=== PATIENT | female | born 1990 | race African-American/Black ===

== ENCOUNTER 2019-04-19 16:51 | Emergency (ER) | payer BC ==
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
[2019-04-19 19:54] VITALS: BP 126/96
== END 2019-04-19 19:50 | disposition home or self-care (01) ==
LOC: ED 16:51
DX: S06.0X9A Concussion with loss of consciousness of unspecified duration, initial encounter (principal); W22.8XXA Striking against or struck by other objects, initial encounter; Y93.89 Activity, other specified; Y92.9 Unspecified place or not applicable; R61 Generalized hyperhidrosis; R06.02 Shortness of breath; R20.0 Anesthesia of skin; R20.2 Paresthesia of skin; Z72.0 Tobacco use
CPT/HCPCS: 99282

== ENCOUNTER 2019-04-26 21:13 | Emergency (ER) | payer BC ==
--- NOTE | 2019-04-27 01:41 | ED ---
Substance Abuse/Use - HPI Summary HPI Summary: The patient is a 28 y/o F presenting to [facility] with a chief complaint of using cocaine through intranasal administration tonight. She reports that she had never had cocaine before, and went she used it, she diaphoresis, anxiety, chest pains, clamminess, dizziness, prickly sensation on the body, nausea, and vomiting. She states she is feeling better now with symptoms rated 0/10 in severity. PMHx: none. Current some day smoker, occasional EtOH, marijuana use. Medications reviewed. Allergies noted. - History Of Current Complaint Chief Complaint: EDNauseaVomitDiarrh Stated Complaint: DIZZY/SOB PER PT Time Seen by Provider: 04/27/19 01:32 Hx Obtained From: Patient Onset/Duration of Drug/ETOH Abuse: Minutes Ingestion History: Type/Name Of Drug - cocaine Severity Initially: Severe Severity Currently: Mild Character: Anxious Aggravating Factor(s): Nothing Alleviating Factor(s): Nothing Associated Signs And Symptoms: Chest Pain, Diaphoretic - clammy, Nausea, Vomiting, Other: - "prickly" sensation on body, anxiety - Allergies/Home Medications Allergies/Adverse Reactions: Allergies Allergy/AdvReac Type Severity Reaction Status Date / Time No Known Allergies Allergy Verified 04/26/19 21:16 PMH/Surg Hx/FS Hx/Imm Hx Endocrine/Hematology History: Denies: Hx Diabetes Respiratory History: Denies: Hx Asthma Sensory History: Denies: Hx Legally Blind, Hx Deafness Opthamlomology History: Denies: Hx Legally Blind - Surgical History Surgical History: None Surgery Procedure, Year, and Place: none Infectious Disease History: No Infectious Disease History: Denies: Traveled Outside the [place] in Last 30 Days - Family History Known Family History: Positive: Diabetes Negative: Blood Disorder - Social History Alcohol Use: Occasionally Hx Substance Use: Yes Substance Use Type: Reports: Marijuana Substance Use Comment - Amount & Last Used: "occasionally" Hx Tobacco Use: Yes Smoking Status (MU): Current Some Day Smoker Review of Systems Positive: Skin Diaphoresis - clamminess, Other - "prickly" skin Positive: Chest Pain Positive: Vomiting, Nausea Neurological: Other - dizziness Positive: Anxious All Other Systems Reviewed And Are Negative: Yes Physical Exam - Summary Physical Exam Summary: Appearance: Well-appearing, Well-nourished, lying in bed comfortably Skin: Warm, dry, no obvious rash Eyes: sclera anicteric, no conjunctival pallor ENT: mucous membranes moist, pharynx appears normal Neck: Supple, nontender Respiratory: Clear to auscultation, no signs of respiratory distress Cardiovascular: Normal S1, S2. No murmurs. Normal distal pulses in tibial and radial bilaterally. Abdomen: Soft, nontender, normal active bowel sounds present Musculoskeletal: Normal, Strength/ROM Intact Neurological: A&Ox3, awake and alert, mentation is normal, speech is fluent and appropriate Psychiatric: affect is normal, does not appear anxious or depressed Triage Information Reviewed: Yes Vital Signs On Initial Exam: Initial Vitals Temp Pulse Resp BP Pulse Ox 96.9 F 113 16 146/83 100 04/26/19 21:15 04/26/19 21:15 04/26/19 21:15 04/26/19 21:15 04/26/19 21:15 Vital Signs Reviewed: Yes Diagnostics - Vital Signs Vital Signs Temp Pulse Resp BP Pulse Ox 04/26/19 23:57 97.6 F 95 18 146/88 100 04/26/19 21:15 96.9 F 113 16 146/83 100 - Laboratory Lab Statement: Any lab studies that have been ordered have been reviewed, and results considered in the medical decision making process. Course/Dx - Course Course Of Treatment: Pt is a 28 y/o F with cc of inhalation of cocaine tonight for the first with associated symptoms of anxiety, chest pains, diaphoresis, dizziness, nausea, and vomiting. Upon physical exam, the pt exhibits no acute abnormalities. We discussed plan for discharge including risks of using cocaine. She understands and agrees with this plan. Dx of cocaine abuse. - Diagnoses Provider Diagnoses: Cocaine abuse Discharge ED - Sign-Out/Discharge Documenting (check all that apply): Patient Departure - Patient will be discharged home. Patient Received Moderate/Deep Sedation with Procedure: No - Discharge Plan Condition: Stable Disposition: HOME Patient Education Materials: Cocaine Abuse (ED) Referrals: [facility] [Outside] - If Needed Additional Instructions: Fortunately your body metabolized the cocaine quickly and it does not look like you have suffered any longlasting ill effects. Of course stay away from cocaine in the future as it can be a quite dangerous drug and your system in particular does not seem to tolerate it well. - Billing Disposition and Condition Condition: STABLE Disposition: Home - Attestation Statements Document Initiated by Reyna: Yes Documenting Scribe: Betty Molina Provider For Whom Reyna is Documenting (Include Credential): Dr. Merritt Torres MD Scribe Attestation: I, Betty Molina scribed for Dr. Merritt Torres MD on 05/02/19 at 1235. Scribe Documentation Reviewed: Yes Provider Attestation: The documentation as recorded by the Betty eugene accurately reflects the service I personally performed and the decisions made by me, Dr. Merritt Torres MD Status of Scribe Document: Viewed
[2019-04-27 01:45] VITALS: BP 137/90
== END 2019-04-27 02:02 | disposition home or self-care (01) ==
LOC: ED 21:13
DX: F14.10 Cocaine abuse, uncomplicated (principal); F41.9 Anxiety disorder, unspecified; R07.89 Other chest pain; R61 Generalized hyperhidrosis; R42 Dizziness and giddiness; R11.2 Nausea with vomiting, unspecified; Z72.0 Tobacco use
CPT/HCPCS: 93005; 99282

== ENCOUNTER 2022-10-21 06:04 | Inpatient (IN) ==
[~2022-10-21 06:04] MED LIST: Buffered Lidocaine 1% SYRIN 1 ml INTRADERM ONE; Lactated Ringers 1000 ml BAG 1,000 ML IV SCH; Naloxone 0.4 mg VIAL 0.4 mg/ml 1 ml VIAL IV PRN; Ondansetron 4 mg VIAL 2 MG/ML 2 ml VIAL IV PRN; fentaNYL 100 mcg/2 ml 50 MCG/ML VIAL IV PRN; oxyCODONE/Acetamin 5/325 mg TAB PO PRN
[2022-10-21] MEDS ORDERED: Lidocaine 4% CREAM (LMX) 5 GM TUBE TOPICAL ONE (06:41)
[2022-10-21] MEDS ORDERED: ceFAZolin 2 GM in NS PREMIX 2 GM/100 ML BAG IVPB ONE (08:45)
[2022-10-21] MEDS ORDERED: Heparin 5000 UNITS/ML 1 mL VIAL ONE (08:45)
[2022-10-21] MEDS ORDERED: ISOSULFAN BLUE 1% 5 ML VIAL 10 MG/ML SUBCUT ONE (12:57)
[2022-10-21] MEDS ORDERED: Bupivacaine 0.5% 50 ML MDV VIAL ONE (12:58)
[2022-10-21] MEDS ORDERED: Lidocaine 2% PF 5 ML VIAL ONE (13:08)
[2022-10-21] MEDS ORDERED: Rocuronium 50 mg VIAL 10 mg/ml 5 ml VIAL (50 mg) ONE ×2 (13:08→14:29)
[2022-10-21] MEDS ORDERED: Propofol 10 MG/ML 20 ML BTL ONE (13:08)
[2022-10-21] MEDS ORDERED: fentaNYL 100 mcg/2 ml 50 MCG/ML VIAL ONE ×5 (13:09→19:04)
[2022-10-21] MEDS ORDERED: Midazolam 2 mg/2 ml VIAL 1 mg/ml 2 ml VIAL (2 mg) ONE (13:09)
[2022-10-21] MEDS ORDERED: Ondansetron 4 mg VIAL 2 MG/ML 2 ml VIAL ONE ×2 (14:49→21:14)
[2022-10-21] MEDS ORDERED: Scopolamine 1 mg/72hr PATCH ONE (14:51)
[2022-10-21] MEDS ORDERED: ceFAZolin VIAL VIAL ONE (16:08)
[2022-10-21] MEDS ORDERED: Sevoflurane BOTTLE ONE (16:26)
[2022-10-21] MEDS ORDERED: Dexamethasone IV 4 MG/ML VIAL 1 ml VIAL ONE (17:49)
[2022-10-21] MEDS ORDERED: HYDROmorphone 0.5 MG/0.5 ML SYRINGE ONE (18:45)
[2022-10-21] MEDS ORDERED: Ondansetron 4 mg VIAL 2 MG/ML 2 ml VIAL IV PRN (20:29)
[2022-10-21] MEDS ORDERED: HYDROcodone/Acetamin 10/325 TAB (NF) PO PRN (20:33)
[2022-10-21] MEDS ORDERED: Morphine 2 MG/ML SYRINGE IV PRN (20:34)
[2022-10-21] MEDS ORDERED: Benzocaine (plain) Lozenge 15 MG PO PRN (22:08)
[2022-10-21] MEDS: ceFAZolin VIAL 2 GM in NS 0.9% 100 ml BAG 100 ML IVPB SCH (22:48)
[2022-10-21] MEDS: Heparin 5000 UNITS/ML 1 mL VIAL SUBCUT SCH (22:51)
[2022-10-22] MEDS: ceFAZolin VIAL 2 GM in NS 0.9% 100 ml BAG 100 ML IVPB SCH ×2 (06:18→14:16)
[2022-10-22] MEDS: Heparin 5000 UNITS/ML 1 mL VIAL SUBCUT SCH ×2 (06:18→14:54)
[2022-10-22] MEDS: HYDROcodone/ACETAMIN 5/325 mg TAB PO PRN ×2 (06:24→10:56)
[2022-10-22] MEDS ORDERED: Pneumococcal Vac 23-Polyvalent IM ONE (09:00)
[2022-10-22 15:23] VITALS: BP 116/69
== END 2022-10-22 15:40 | disposition home or self-care (01) | DRG 362 ==
LOC: AA 06:04 → SSU 22:03
PROVIDERS: ADMIT Student in an Organized Health Care Education/Training Program; ATTEND Student in an Organized Health Care Education/Training Program